=== PATIENT | female | born 1950 | race Hispanic/Latino ===

== ENCOUNTER → 2022-10-11 | Outpatient (CLI) | payer MEDICARE ==
[~2022-10-11] MED LIST: REGADENOSON 0.4 MG/5 ML PF SYG IVP ONE
== END | disposition home or self-care (01) ==
LOC: SHCH 08:47
PROVIDERS: ATTEND Internal Medicine Cardiovascular Disease
DX: R07.89 Other chest pain (principal); R93.1 Abnormal findings on diagnostic imaging of heart and coronary circulation; E11.9 Type 2 diabetes mellitus without complications; Z79.84 Long term (current) use of oral hypoglycemic drugs; Z79.899 Other long term (current) drug therapy
CPT/HCPCS: 78452; 96374; 93017; J2785; A9500 ×2

== ENCOUNTER 2025-02-20 11:52 | Emergency (ER) | payer MEDICARE ==
[~2025-02-20] VITALS: Ht 157.5 cm; Wt 66.2 kg
[2025-02-20 12:18] LABS: IMMATURE GRANULOCYTE ABSOLUTE 0.02 K/uL (0-1); NUCLEATED RED BLOOD CELLS 0.0 % (0.0-0.19); PLATELET COUNT (AUTO) 251 K/uL (130-400); RED BLOOD CELL COUNT(AUTO) 4.56 MIL/uL (4.00-5.50); RED CELL DISTRIBUTION WIDTH 13.4 % (11.0-15.5); WHITE BLOOD COUNT (AUTO) 7.5 K/uL (4.8-10.8)
[2025-02-20 12:37] LABS: CREATININE 0.8 mg/dL (0.5-1.0); GLOMERULAR FILTR. RATE CALC 78.0 mL/min (>90); GLUCOSE,RANDOM 237.0 mg/dL (70-105); SODIUM SERUM 137.0 mmol/L (136-145); UREA NITROGEN, BLOOD 17.0 mg/dL (7-18)
[2025-02-20 12:38] LABS: ADD UA MICROSCOPIC YES; APPEARANCE,URINE CLEAR (CLEAR); GLUCOSE, URINE (UA) >=1000 mg/dL (NEGATIVE); LEUKOCYTE ESTERASE ,URINE NEGATIVE Leu/uL (NEGATIVE); NITRATE,URINE NEGATIVE (NEGATIVE); OCCULT BLOOD,URINE NEGATIVE (NEGATIVE)
[2025-02-20 12:39] LABS: SQUAMOUS EPITHELIAL CELL,UR RARE /HPF (0-2)
--- NOTE | 2025-02-20 13:50 | HMCIMG ---
EXAM: CT Abdomen and Pelvis Without IV contrast CLINICAL HISTORY: R/O KIDNEY STONES TECHNIQUE: Axial computed tomography images of the abdomen and pelvis without intravenous contrast. CONTRAST: No IV contrast. COMPARISON: None provided. FINDINGS: LUNG BASES: Minimal subpleural atelectatic changes in the posterior basal segments of the bilateral lower lobes. No pleural effusions are seen. LIVER: Unremarkable. GALLBLADDER AND BILE DUCTS: The gallbladder appears within normal limits. No radioopaque gallstones are seen. No biliary ductal dilatation is evident. PANCREAS: Unremarkable. SPLEEN: Unremarkable. ADRENAL GLANDS: Unremarkable. KIDNEYS, URETERS, AND BLADDER: Subcentimeter nonobstructing left renal stones, measuring up to 6 mm. No additional urinary calculi. No hydronephrosis. STOMACH AND BOWEL: Unremarkable appearance of the stomach and bowel. No evidence of bowel obstruction. No evidence suggesting enteritis or colitis. APPENDIX: Normal appendix. PERITONEUM: No free fluid. No free air. LYMPH NODES: No lymphadenopathy is evident. REPRODUCTIVE: Unremarkable as visualized. VASCULATURE: No evidence of abdominal aortic aneurysm. Atheromatous changes in the abdominal aorta. BONES: No aggressive appearing osseous lesion. No acute osseous pathology evident. Degenerative changes in the visualized spine. IMPRESSION: Subcentimeter nonobstructing left renal stones, measuring up to 6 mm. No additional urinary calculi. No hydronephrosis. No bowel obstruction or inflammation. Normal appendix. No free air, free fluid or fluid collection. /[place]
--- NOTE | 2025-02-20 14:22 | ERN ---
General Chief Complaint: Abdominal Pain Stated Complaint: ABDOMINAL PAIN Time Seen by MD: 12:01 History of Present Illness Initial Comments 74-year-old female who presents for lower abdominal pain on and off for the last few weeks. Patient reports that for the last few weeks she has been having increased urination and some suprapubic discomfort which waxes and wanes. No fevers, flank pain or vomiting. She has been to her PCP, Dr. Minda Walters, multiple times and has been on multiple doses of antibiotics. She had a CT scan done about two months ago which showed renal stones but no other abnormalities. She has follow up tomorrow, but she reports some discomfort today and wanted evaluation. Allergies: Coded Allergies: No Known Allergies (Unverified Allergy, Unknown, 02/20/25) Past Medical History Past Medical History: Kidney Stone Past Surgical History: Other ROS Dictation CONSTITUTIONAL: No chills, no fever, no weakness, no diaphoresis, no malaise. HEAD/FACE: No signs of trauma. EENT: No eye pain, no blurred vision, no tearing, no double vision, no ear pain, no ear discharge, no nose pain, no nasal congestion, no throat pain, no throat swelling, no mouth pain. RESPIRATORY: No cough, no orthopnea, no SOB, no stridor, no wheezing. CARDIOVASCULAR: No chest pain, no edema, no palpitations, no syncope. GASTROINTESTINAL/ABDOMINAL: Suprapubic/lower abdominal pain GENITOURINARY: No abnormal discharge, no dysuria, no frequent urination, no hematuria. No complaints of pain in the genitals. MUSCULOSKELETAL: No back pain, no gout, no joint pain, no joint swelling, no muscle pain, no muscle stiffness, no neck pain. INTEGUMENTARY: No change in color, no change in hair/nails, no dryness, no lesion, no lumps, no rash. NEUROLOGICAL/PSYCH: No anxiety, not depressed, no emotional problem, no hea dache, no numbness, no pre-existing deficit, no history of seizures, no tremors, no weakness. HEMATOLOGIC/LYMPHATIC: Not anemic, no history of blood clots, no apparent bleeding, no bruising, glands not swollen. All Systems Negative, Except as Noted. Physical Exam Physical Exam Dictation VITAL SIGNS: Reviewed. GENERAL APPEARANCE: Alert, oriented x3, no acute distress, obese. HEAD AND FACE: Non-traumatic. EYES: PERRL, pink conjunctivas, eyelid no trauma, anterior chamber clear. EARS: Pinnas intact and no signs of trauma or erythema. Ear canals clear and no discharge. TMs no erythema. NOSE: No discharge, no bleeding. OROPHARYNX: Mouth normal, teeth no caries, tongue pink. Pharynx clear, no erythema. Tonsils no exudates, no abscesses noted. Mucous membrane moist. NECK: Supple, non-tender, no thyromegaly, no masses, no JVD, no bruits. BREAST: Deferred. CHEST: No tenderness, no crepitus, no paradoxical movement, no retractions. LUNGS: Clear, well-ventilated, symmetric, no rales, no wheezing, no rhonchi, no stridor, good breath sounds bilaterally. HEART: Regular rate, regular rhythm, no murmur, no gallops. VASCULAR: No peripheral edema. ABDOMEN: Soft, positive bowel sounds, nondistended, no guarding, nontender, no rebound, no masses no hepatomegaly, no splenomegaly, no Gary's sign, no hernias. RECTAL: Deferred. GENITAL: Deferred. NEUROLOGICAL: Normal speech, gross motor function intact, gross sensory function intact. MUSCULOSKELETAL: Neck nontender, full range of motion, back nontender, full range of motion. EXTREMITIES: Nontender, full range of motion. SKIN: Color pink, dry, no turgor, no rash, no lacerations, no abrasions, no contusions. LYMPHATICS: Deferred. Results Laboratory and Microbiology Lab and Micro Result Laboratory Tests Test 02/20/25 12:08 02/20/25 12:15 Urine Color LIGHT-YELLOW (YELLOW) Urine Appearance CLEAR (CLEAR) Urine pH 6.5 (5.0-8.0) Urine Specific [place] 1.018 (1.001-1.031) Urine Protein NEGATIVE mg/dL (NEGATIVE) Urine Glucose (UA) >=1000 mg/dL (NEGATIVE) H Urine Ketones NEGATIVE mg/dL (NEGATIVE) Urine Occult Blood NEGATIVE (NEGATIVE) Urine Nitrate NEGATIVE (NEGATIVE) Urine Bilirubin NEGATIVE mg/dL (NEGATIVE) Urine Urobilinogen 0.2 mg/dL (0.2-1.0) Urine Leukocyte Esterase NEGATIVE Thuan/uL Urine RBC 2-5 /HPF (0-1) H Urine WBC 2-5 /HPF (0-1) H Urine Squamous Epithelial Cells RARE /HPF (0-2) Urine Bacteria RARE /HPF (None Seen) White Blood Count 7.5 K/uL (4.8-10.8) Red Blood Count 4.56 MIL/uL (4.00-5.50) Hemoglobin 14.4 g/dL (12.0-16.0) Hematocrit 42.6 % (36-48) Mean Corpuscular Volume 93.4 fL (79-99) Mean Corpuscular Hemoglobin 31.6 pg (27.0-33.0) Mean Corpuscular Hemoglobin Concent 33.8 g/dL (32.0-36.0) Red Cell Distribution Width 13.4 % (11.0-15.5) Platelet Count 251 K/uL (130-400) Mean Platelet Volume 9.2 fL (7.5-10.5) Immature Granulocyte % (Auto) 0.3 % (0-1) Neutrophils (%) (Auto) 51.7 % (40.0-77.0) Lymphocytes (%) (Auto) 38.2 % (21.0-51.0) Monocytes (%) (Auto) 7.7 % (3.0-13.0) Eosinophils (%) (Auto) 0.8 % (0.0-8.0) Basophils (%) (Auto) 1.3 % (0.0-5.0) Neutrophils # (Auto) 3.9 K/uL (1.8-7.7) Lymphocytes # (Auto) 2.9 K/uL (1.0-4.8) Monocytes # (Auto) 0.6 K/uL (0.1-1.0) Eosinophils # (Auto) 0.06 K/uL (0.00-0.70) Basophils # (Auto) 0.10 K/uL (0.00-0.20) Absolute Immature Granulocyte (auto 0.02 K/uL (0-1) Nucleated Red Blood Cells 0.0 % (0.0-0.19) Sodium Level 137 mmol/L (136-145) Potassium Level 5.0 mmol/L (3.5-5.1) Chloride Level 101 mmol/L (101-111) Carbon Dioxide Level 32 mmol/L (21-32) Blood Urea Nitrogen 17 mg/dL (7-18) Creatinine 0.8 mg/dL (0.5-1.0) Glomerular Filtration Rate Calc 78 mL/min (>90) Random Glucose 237 mg/dL (70-105) H Total Calcium 10.1 mg/dL (8.5-10.1) MDM CC: Lower abdominal pain on and off for some weeks now Historian: Patient Comorbidities: None Limitations by social determinants of health: None Differential diagnosis: UTI, kidney, gynecologic pathology Vital signs are stable Labs independently ordered and interpreted by me: CBC is normal urinalysis shows glucose otherwise unremarkable Metabolic panel does show some glucose but is otherwise unremarkable CT of the abdomen and pelvis without contrast shows no acute abnormalities. There has a kidney stone unlikely to be related to the patient's symptoms Patient is stable. She is follow up with the PCP tomorrow. I gave her a copy of the CT scan results her labs and she will go to Dr. Mnida Walters tomorrow. ED Course Orders Procedure Category Date Status Time Cbc With Differential LAB 02/20/25 Complete 12:02 Urinalysis Profile LAB 02/20/25 Complete 12:02 Ct Abdomen/Pelvis W/O CT 02/20/25 Resulted Contrast 12:02 Basic Metabolic Panel LAB 02/20/25 Complete 12:02 Vital Signs Date Time Temp Pulse Resp B/P (MAP) Pulse Ox O2 Delivery O2 Flow Rate FiO2 02/20/25 14:24 98.2 67 16 141/66 98 Room Air* 0 21 02/20/25 12:14 98.2 70 16 146/68 98 Room Air* 0 21 02/20/25 11:55 97.9 76 20 137/70 99 Room Air 0 DX & DISP Disposition: Discharge Departure Impression: Primary Impression: Suprapubic pain Additional Impression: Urinary frequency Condition: Stable Additional Instructions: There are no major abnormalities on your workup here today. Your vital signs has been stable. Your blood work (CBC with differential, metabolic panel) shows an elevated blood glucose (237) but is otherwise unremarkable. Your urinalysis shows glucose, but no signs of infection. The micro shows a very minimal amount of RBCs and WBCs. The CT scan shows a 6 mm kidney stone in your kidney, but as we discussed, this is unlikely to be causing your symptoms. It has not passed yet. As we discussed, consider gynecologic or urologic follow up as an outpatient. Discuss this with your primary doctor. Please return to the emergency department if you have any concerns. Referrals: MARIXA BHAGAT MD (PCP) YOSEF CRUZ DO Feb 20, 2025 14:22
[2025-02-20 14:24] VITALS: BP 141/66; PULSE 67; RESP 16; TEMP 98.3; O2SAT 98
== END 2025-02-20 14:31 | disposition home or self-care (01) ==
LOC: EDH 11:52
DX: R10.2 Pelvic and perineal pain (principal); R35.0 Frequency of micturition
CPT/HCPCS: 36415; 74176; 80048; 81001; 85025; 99284

== ENCOUNTER 2025-02-21 23:27 | Emergency (ER) | payer MEDICARE ==
[~2025-02-21] VITALS: Ht 157.5 cm; Wt 65.8 kg
--- NOTE | 2025-02-22 00:35 | ERN ---
ED Note History of Present Illness Stated Complaint: C/O URINARY RETENTION W/LOWER ABD PAIN Chief Complaint: Urinary Retention Time Seen by MD: 23:46 Dictation: 74-year-old female return visit from yesterday complains of right flank pain. Patient followed up today with her urologist and was told to start Flomax to help pass kidney stone she has. Patient states she was unable to get her Flomax she came to the ER for Flomax and pain control. Patient denies any fever. Allergies: Coded Allergies: No Known Allergies (Unverified Allergy, Unknown, 02/20/25) Past Medical History Past Medical History: Diabetes-Type II Surgical History: Review of System Dictation Constitutional: Negative for fever,chills, and weight loss Eyes: Negative for injury, pain,redness, and discharge ENT: Negative for injury,pain or swelling Cardiovascular: Negative for chest pain, palpitations, and edema Respiratory: Negative for shortness of breath, cough, wheezing, and pleuritic chest pain Abdomen/GI: Negative for abdominal pain, nausea, vomiting, diarrhea, and constipation Back: Negative for injury and pain : Negative for injury, bleeding and discharge. Positive for Right flank pain MS/Extremity: Negative for injury and deformity Skin: Negative for rash, and discoloration Neuro: Negative for headache, weakness, numbness, tingling, and seizure Psych: Negative for suicide ideation, homicidal ideation, and hallucinations Allergy/Immunology: Negative for hives, rash, and allergies Initial Vital Sign VS Vital Signs Date Time Temp Pulse Resp B/P (MAP) Pulse Ox O2 Delivery O2 Flow Rate FiO2 02/21/25 23:28 98.2 69 20 189/81 98 Room Air Physical Exam Dictation General: awake, alert, NAD Head/Face: Normocephalic, atraumatic Eyes: PERRL, EOMI, vision at baseline ENT: oral cavity clear, TMs clear, no signs of infection Neck: Trachea midline, supple, no nuchal rigidity Cardiovascular: RRR, normal S1/S2, No MRGs, no JVD Respiratory: CTAB, no respiratory distress, No rales or wheezes Abdomen: Soft, non-tender, non-distended, normal bowel sounds, no guarding or rebound. Skin: Warm, dry, normal turgor, no rash MS/Extremity: Pulses equal, no cyanosis, neurovascular intact, FROM. Right flank pain and tenderness Neuro: COAx4, GCS 15, strength 5/5, CN 2-12 intact, normal cerebellar exam, normal gait, Psych: Normal behavior, mood, and affect normal ED Course ED Course Orders Procedure Category Date Status Time Tamsulosin Hcl PHA 02/22/25 Complete (Flomax) 00:30 Ketorolac PHA 02/22/25 Complete Tromethamine 30mg/Ml 00:30 Current Medications Medications (Trade) Dose Ordered Sig/Sofia Route PRN Reason Start Time Stop Time Status Last Admin Dose Admin Ketorolac Tromethamine (toRADol) 30 mg ONCE ONCE IM 02/22/25 00:30 02/22/25 00:31 DC 02/22/25 00:41 Tamsulosin HCl (FloMAX) 0.4 mg ONCE ONCE PO 02/22/25 00:30 02/22/25 00:31 DC 02/22/25 00:41 Vital Signs Date Time Temp Pulse Resp B/P (MAP) Pulse Ox O2 Delivery O2 Flow Rate FiO2 02/21/25 23:28 98.2 69 20 189/81 98 Room Air Medical Decision Making MDM 74-year-old female return visit from yesterday complains of right flank pain. Patient followed up today with her urologist and was told to start Flomax to help pass kidney stone she has. Patient states she was unable to get her Flomax she came to the ER for Flomax and pain control. Patient denies any fever. A 14 points ROS done, pertinent positive and negatives described in HPI; all others negative. TIME WAS SPENT ON COUNSELING, REVIEWING MEDICAL RECORDS, REVIEWING THE ENTIRE VISIT DOCUMENTATION (INCLUDING ANY COMMENTS THAT MAY HAVE BEEN GIVEN BY THE PATIENT i.e. THE REVIEW OF SYSTEMS) AND COORDINATION OF CARE Patient advised we will give Flomax today in ER. will Give some Toradol for pain control. BUN and creatinine normal from yesterday's lab work. 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 Patient advised she will continue to have pain and she passes the stone but if it worsens to return to ER or follow up with her urologist Patient VSS, NAD, nontoxic, stable for discharge. Pt given discharge instructions in layman terms and understood, all questions answered. Pt will follow up with PCP and return to the ER if worse. DX & DISP Disposition: Discharge Departure Impression: Primary Impression: Kidney stone Additional Impressions: Flank pain, Right flank pain Condition: Stable Additional Instructions: FOLLOW-UP WITH YOUR PCP IN 24-72 HOURS AND IN THE EVENT IF SYMPTOMS WORSEN OR AN EMERGENCY OVERNIGHT REPORT TO THE ED IMMEDIATELY Referrals: MARIXA BHAGAT MD (PCP) MANUEL HIGGINS NP Feb 22, 2025 00:35
[2025-02-22 00:59] VITALS: BP 133/59; PULSE 80; RESP 18; TEMP 98.2; O2SAT 100
== END 2025-02-22 01:10 | disposition home or self-care (01) ==
LOC: EDH 23:27
DX: N20.0 Calculus of kidney (principal); R10.9 Unspecified abdominal pain; E11.9 Type 2 diabetes mellitus without complications
CPT/HCPCS: 99283; 96372; J1885